=== PATIENT | male | born 1940 | race Caucasian/White ===

== ENCOUNTER 2016-10-24 15:14 | Emergency (ER) | payer MEDICARE, OTHER ==
[~2016-10-24] VITALS: Ht 177.8 cm; Wt 95.5 kg
--- NOTE | 2016-10-24 15:18 | ED.REPORT ---
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 Pt reports that he tripped over a curb, fell forward and hit the front of his head. He states he experienced a, "flash of light and a stab on his neck." He denies numbness and tingling. He is able to move all four extremities. Nursing Notes Stated Complaint: GLF Nursing Notes Reviewed: Yes Allergies: Coded Allergies: codeine (Verified Adverse Reaction, Severe, Nausea,Vomiting, 10/24/16) General Time Seen by MD: 15:18 Chief Complaint Neck pain Hx Obtained From: Patient Arrived By: Ambulance Onset Occurred: Just prior to arrival Symptom Duration: Since onset Caused by: Fall on ground Location: Neck Quality: Painful Severity: Current: Moderate Recent Healthcare: No recent doctor visit, No recent hospitalization Similar Sx Previous: No Risk Factors IC Bleed Risk Stratification Age (<1 yr or >60 yrs)No Blood thinners, No Coagulation disorder, No EtOH use, No Prior epidural bleed Risk factors reviewed Head CT Imaging Patient Presents WITH: Loss of Conciousness Non Contrast CT Indicated For: >/= 60 yrs Age RF Statements: Risk factors reviewed Bleeding Risk Stratification Risk factors reviewed Past Medical History Past Medical History Reports: Hypertension Social History Other Social History: Good social support, , Local resident Ambulatory Status Independent Review of Systems Constitutional: Denies: Chills Eyes: Denies: Blurred left, Blurred right Ears / Nose / Throat: Denies: Ear drainage left Respiratory: Denies: Dyspnea on exertion Musculoskeletal: Reports: Neck pain Skin: Denies Bruising Neurologic: Denies: Abnormal movement, Numbness, Problem walking, Unable to speak, Weakness Complete sys rev & neg: except as marked. Physical Exam Initial Vital Signs Vital Signs (First) Date Time Temp Pulse Resp B/P Pulse Ox O2 Delivery O2 Flow Rate FiO2 10/24/16 15:19 36.6 71 19 165/87 99 Room Air Initial VS: Reviewed Respiratory: Breath sounds normal, Clear to auscultation, No respiratory distress Cardiovascular: Regular rate & rhythm, Heart sounds normal, Intact distal pulses Abdomen / GI: Soft, Non-tender, No guarding, No rebound, No distention Extremities: Vascular intact, Neuro intact, No swelling, No tenderness Skin: Warm, Dry General/Constitutional: Awake, Alert, Cooperative, Not toxic appearing Neck / Muscle Tenderness: Positive: Midline tenderness mid Trauma - General: Positive: Laceration small laceration, skin tear, lateral to right orbit Neurologic: Oriented X3, Speech NL, No motor deficits, No sensory deficits, CN II - XII intact, Reflexes equal bilat, Cerebellar NL, Memory NL, Gait NL Interpretation & Diagnostics Lab Results Interpretation Result Diagram: 10/24/16 1515 10/24/16 1515 Test 10/24/16 15:15 White Blood Count 6.8th/mm3 (3.8-10.1) Red Blood Count 4.14mil/mm3 (4.40-5.80) Hemoglobin 14.1g/dL (13.8-17.2) Hematocrit 40.1% (41.0-50.0) Mean Corpuscular Volume 96.9fL (81-100) Mean Corpuscular Hemoglobin 34.1pg (27.0-35.0) Mean Corpuscular Hemoglobin Concent 35.2% (32.0-37.0) Red Cell Distribution Width 13.8% (12.3-15.4) Platelet Count 294bil/L (150-400) Neutrophils (%) (Auto) 51.4% (40-74) Lymphocytes (%) (Auto) 35.8% (14-46) Monocytes (%) (Auto) 11.5% (4-12) Eosinophils (%) (Auto) 0.6% (0-5) Basophils (%) (Auto) 0.3% (0-3) Hold Purple Top Tube Received (Received) Prothrombin Time 10.0sec (8.1-12.5) Prothromb Time International Ratio 0.94ratio Hold Blue Top Tube Received (Received) Sodium Level 136mEq/L (134-144) Potassium Level 3.5mEq/L (3.5-5.2) Chloride Level 100mEq/L (97-108) Carbon Dioxide Level 24mmol/L (18-29) Blood Urea Nitrogen 15mg/dL (8-27) Creatinine 0.75mg/dL (0.76-1.27) Estimat Glomerular Filtration Rate 108mL/min (>59) Glucose Level 101mg/dL (60-99) Calcium Level 9.3mg/dL (8.5-10.1) Total Bilirubin 0.5mg/dL (0.0-1.2) Aspartate Amino Transf (AST/SGOT) 13U/L (0-50) Alanine Aminotransferase (ALT/SGPT) 10U/L (0-44) Alkaline Phosphatase 42U/L (25-160) Total Protein 6.7g/dL (6.4-8.4) Albumin 4.3g/dL (3.4-5.0) Hold Comfrey Top Tube Received (Received) CT Head Interpretation IMPRESSION: 1. No acute intracranial process. 2. Moderate atrophy and chronic microvascular ischemic changes. Dictated by: Lisa Pfeiffer M.D. on 10/24/2016 at 16:24 Approved by: Lisa Pfeiffer M.D. on 10/24/2016 at 16:25 Study: Head CT no contrast Interpretation / Wet Read by: Interpret - Radiologist CT C-Spine Interpretation IMPRESSION: 1. No acute osseous abnormality. 2. Multiple thyroid low attenuation foci. These could represent adenomas or cysts. No priors are available for comparison. Recommend interval followup with thyroid ultrasound for additional evaluation. Dictated by: Lisa Pfeiffer M.D. on 10/24/2016 at 16:22 Approved by: Lisa Pfeiffer M.D. on 10/24/2016 at 16:24 Study type: CT no contrast Interpretation / Wet Read by: Interpret - Radiologist Re-Eval/Medical Decision Med Decision/Clinical Course CT scan brain and cervical spine were reassuring. Neurologic examination remained normal and stable. Mr. Feliz felt ready to be discharged home. I will provide him with a soft collar. I did recommend close outpatient follow- up. Short course of [place] prescribed for pain. Counseled Regarding: Diagnosis, Lab results, Need for follow-up, When/why to return to ED Discharge & Departure Impression: Primary Impression: Blunt head injury Encounter type: initial encounter Qualified Code: S09.8XXA - Other specified injuries of head, initial encounter Additional Impressions: Cervical strain, acute Encounter type: initial encounter Qualified Code: S16.1XXA - Strain of muscle, fascia and tendon at neck level, initial encounter Laceration Disposition: Home Discharge Condition All VS Reviewed: Yes Condition: Critical Patient Instructions: Acute Wound Care (ED), Cervical Neck Strain Exercises ( GEN), Minor Head Injury (ED) Additional Instructions: The CAT scan of your brain and cervical spine were reassuring. You do have a thyroid nodule seen on the CAT scan of the neck and this will need a follow-up ultrasound. Discussed this with your primary care physician. You may take 1-2 [place] every 6 hours as needed for severe pain. This medication can be nauseating so use Zofran 1 every 8 hours to prevent nausea. This medication is constipating so be sure increase the natural fiber in your diet or drink prune juice when you are taking it. Do not drive or drink alcohol consume acetaminophen for taking the [place]. I would like you to call your doctor on Tuesday to set up a follow-up. Have the CT scans reviewed and an ultrasound of your thyroid addressed. Continue to wear your soft collar for a few days. Referrals: [facility] Att[facility] Portion of this note were transcribed by Dawna Carr. I, Dr. Leonard, personally performed the history, physical exam, and medical decision-making: I reviewed and confirmed the accuracy for the information in the transcribed note. Signed by: analy Doty, 10/24/16 1800 copies to: [facility] Preston Leonard DO Oct 24, 2016 15:18 Dawna Carr Oct 24, 2016 15:24
[2016-10-24 15:19] VITALS: BP 165/87; PULSE 71; RESP 19; O2SAT 99
[2016-10-24 15:32] LABS: BASOPHILS % (AUTO) 0.3 % (0-3); EOSINOPHILS % (AUTO) 0.6 % (0-5); MONOCYTES % (AUTO) 11.5 % (4-12); Mean Corpuscular Hemoglobin 34.1 pg (27.0-35.0); Mean Corpuscular Volume 96.9 fL (81-100); NEUTROPHILS % (AUTO) 51.4 % (40-74); Platelet Count 294 bil/L (150-400)
[2016-10-24 15:49] LABS: INR 0.94 ratio
[2016-10-24 16:10] VITALS: BP 142/81; PULSE 63; RESP 19; O2SAT 95
--- NOTE | 2016-10-24 16:26 | DRSVH ---
PROCEDURE: CT CERVICAL SPINE WITHOUT CONTRAST ([id number]) INDICATIONS: fell forward hit head has cervical pain. TECHNIQUE: Noncontrast 3 mm thick sections acquired from the skull base to the T4 level. Sagittal and coronal r eformats were then constructed. For radiation dose reduction, the following was used: automated exp osure control, adjustment of mA and/or kV according to patient size. COMPARISON: None. FINDINGS: Image quality: Excellent. Bones: No fractures or dislocations. Visualized superior ribs are intact. Moderate multilevel dege nerative disc space narrowing is present. Soft tissues: Prevertebral soft tissues are normal in thickness. No paravertebral hematomas. No ap ical pneumothoraces. Thyroid gland demonstrates a prominent partially visualized low attenuation foc us within the right lobe. Additional smaller foci are noted bilaterally. No priors are available for comparison. IMPRESSION: 1. No acute osseous abnormality. 2. Multiple thyroid low attenuation foci. These could represent adenomas or cysts. No priors are avai lable for comparison. Recommend interval followup with thyroid ultrasound for additional evaluation. Dictated by: Lisa Pfeiffer M.D. on 10/24/2016 at 16:22 Approved by: Lisa Pfeiffer M.D. on 10/24/2016 at 16:24
--- NOTE | 2016-10-24 16:27 | DRSVH ---
PROCEDURE: CT BRAIN WITHOUT CONTRAST ([id number]) INDICATIONS: fell forward hit head has cervical pain. TECHNIQUE: Noncontrast 4.5 mm thick angled axial sections acquired from the foramen magnum to the vertex, with c oronal reformats. COMPARISON: None. FINDINGS: Image quality: Excellent. CSF spaces: Basal cisterns are patent. No extra-axial fluid collections. The ventricles are symmet isaiah in size and shape. Brain: No intracranial bleeds or masses. There is cerebral volume loss for age, with resultant vent ricular and sulcal prominence. There are periventricular and deep white matter chronic small vessel ischemic changes. There is intracranial internal carotid artery atherosclerosis. Skull and face: Calvarium and visualized facial bones appear intact, without suspicious lesions. Sinuses: Visualized sinuses and mastoids are clear. IMPRESSION: 1. No acute intracranial process. 2. Moderate atrophy and chronic microvascular ischemic changes. Dictated by: Lisa Pfeiffer M.D. on 10/24/2016 at 16:24 Approved by: Lisa Pfeiffer M.D. on 10/24/2016 at 16:25
[2016-10-24 17:10] VITALS: BP 153/83; PULSE 63; RESP 18; O2SAT 97
== END 2016-10-24 17:10 | disposition home or self-care (01) ==
LOC: EDBD 15:14 → SED 15:14
DX: S01.81XA Laceration without foreign body of other part of head, initial encounter (principal); S16.1XXA Strain of muscle, fascia and tendon at neck level, initial encounter; W10.1XXA Fall (on)(from) sidewalk curb, initial encounter; W01.10XA Fall on same level from slipping, tripping and stumbling with subsequent striking against unspecified object, initial encounter; Y92.481 Parking lot as the place of occurrence of the external cause; Y93.89 Activity, other specified; Y99.8 Other external cause status; I10 Essential (primary) hypertension; Z88.5 Allergy status to narcotic agent